=== PATIENT | female | born 1990 | race Caucasian/White ===

== ENCOUNTER 2020-07-26 05:35 | Day surgery (SDC) | payer OTHER ==
[2020-07-24 10:38] LABS: BASOPHILS % (AUTO) 0.7 % (0.0-2.0); EOSINOPHILS % (AUTO) 2.4 % (1.0-6.0); HEMATOCRIT 37.6 % (36-46); HEMOGLOBIN 12.6 g/dL (12.0-16.0); LYMPHOCYTES # (AUTO) 1.7 K/uL (1.0-4.8); LYMPHOCYTES % (AUTO) 38.3 % (22.0-44.0); MEAN CORPUSCULAR HEMOGLOBIN 26.9 pg (26.0-34.0); MEAN CORPUSCULAR HGB CONC 33.5 G/dL (31.0-37.0); MEAN CORPUSCULAR VOLUME 80 fL (80-100); MONOCYTES # (AUTO) 0.4 K/uL (0.1-1.0); MONOCYTES % (AUTO) 9.3 % (2.0-9.0); NEUTROPHILS # (AUTO) 2.2 K/uL (1.8-7.7); NEUTROPHILS % (AUTO) 49.3 % (40.0-70.0); PLATELET COUNT (AUTO) 299 K/uL (150-450); RED BLOOD CELL COUNT(AUTO) 4.68 MIL/uL (4.00-5.20)
[2020-07-24 10:49] LABS: ANION GAP 5 mmol/L (8-16); CALCIUM, TOTAL 9.4 mg/dL (8.8-10.5); CARBON DIOXIDE 30 mmol/L (22-29); CHLORIDE 105 mmol/L (98-107); CREATININE 0.81 mg/dL (0.60-1.30); GLOMERULAR FILTR. RATE CALC > 60 mL/min (>60); GLUCOSE,RANDOM 90 mg/dL (70-110); SODIUM SERUM 140 mmol/L (136-145); UREA NITROGEN, BLOOD 14 mg/dL (7-18)
[2020-07-24 11:02] LABS: PROTHROMBIN TIME 10.6 SEC (9.4-11.6)
[2020-07-24 11:04] LABS: HCG,QUANTITATIVE < 1 mIU/mL (0-6)
[2020-07-24 11:06] LABS: COVID AG,FIA SOURCE NASOPHARYNGEAL
[~2020-07-26] VITALS: Ht 162.6 cm; Wt 106.8 kg
[~2020-07-26 05:35] MED LIST: DOCO200C5 PO; FERR256T; FOLI1TAB15 PO; IRON-23 PO; NOCURR; PREN1TAB52 PO; PREN1TAB80 PO; RINGERS SOLUTION,LACTATED 1,000 ML IV ONE
[2020-07-26] MEDS ORDERED: MIDAZOLAM HCL 2 MG/2 ML VIAL IVP ONE (05:36)
[2020-07-26] MEDS ORDERED: ONDANSETRON HCL 4 MG/2 ML VIAL IVP ONE (05:36)
[2020-07-26] MEDS ORDERED: FentaNYL CITRATE PF 100 MCG/2 ML VIAL IVP ONE (05:36)
[2020-07-26] MEDS ORDERED: LIDOCAINE/PF 2% 5 ML VIAL IM ONE (05:36)
[2020-07-26] MEDS ORDERED: ROCURONIUM BROMIDE 10 MG/ML 5 ML VIAL IVP ONE (05:36)
[2020-07-26] MEDS ORDERED: SUCCINYLCHOLINE CHLORIDE 20 MG/ML 10 ML VIAL IVP ONE (05:36)
[2020-07-26] MEDS ORDERED: PROPOFOL 1% 20 ML VIAL IVP ONE (05:36)
[2020-07-26] MEDS ORDERED: DEXAMETHASONE SOD PHOS 4 MG/ML VIAL IVP ONE (05:36)
[2020-07-26] MEDS ORDERED: RINGERS SOLUTION,LACTATED 1,000 ML IV ONE ×2 (05:40→07:25)
[2020-07-26] MEDS ORDERED: MINERAL OIL/PETROLATUM,WHITE PF 3.5 GM OPHTHALMIC OINTMENT ONE (07:25)
[2020-07-26] MEDS ORDERED: HYDROmorphone 2 MG/ML VIAL IVP PRN (07:30)
[2020-07-26] MEDS ORDERED: MEPERIDINE-PF 25 MG/ML VIAL IVP PRN (07:30)
[2020-07-26] MEDS ORDERED: FentaNYL CITRATE PF 100 MCG/2 ML VIAL IVP PRN (07:30)
[2020-07-26] MEDS ORDERED: BUPIVACAINE HCL 0.5% 50 ML VIAL IM ONE (08:00)
== END 2020-07-26 10:05 | disposition home or self-care (01) ==
LOC: SURGERY 05:35
PROVIDERS: ATTEND Student in an Organized Health Care Education/Training Program
DX: Z30.2 Encounter for sterilization (principal); Z68.31 Body mass index [BMI] 31.0-31.9, adult; E66.9 Obesity, unspecified; Z79.899 Other long term (current) drug therapy
CPT/HCPCS: 36415; 58670; 80048; 84702; 85025; 85610; 85730; 87426; 88302; 93005; C9803; J0330; J0690; J1100; J2250; J2405; J2704; J3010; J3490 ×3; J7120